=== PATIENT | female | born 1990 | race Caucasian/White ===

== ENCOUNTER 2019-04-02 16:03 | Inpatient (IN) | payer OTHER, SELFPAY ==
--- NOTE | ~2019-04-02 | CT_ITS ---
EXAMINATION: CT abdomen pelvis w con DATE: 04/02/2019 17:54 INDICATION: Right abdominal pain. TECHNIQUE: Computed tomography (CT) of the abdomen and pelvis was performed with 100 mL Omnipaque 350 intravenous contrast. Automated exposure control and iterative reconstruction technique were employe d. The dose-length product was 548.93 mGy-cm. COMPARISON: None. FINDINGS: The visualized portions of the lung bases are clear without pneumonia or pleural effusion. The heart size is normal. No pericardial effusion. The liver, gallbladder, spleen, pancreas, adrenal glands, and kidneys are normal. The appendix is fluid-filled and dilated to 11 mm with surrounding fa t stranding. There is wall thickening of the cecum and adjacent terminal ileum with surrounding fat s tranding. There is a small volume of pelvic ascites. There is an intrauterine device free in the kwame toneum outside of the uterus. There are no pathologically enlarged lymph nodes. There are chronic jatin ateral L5 pars defects without spondylolisthesis. IMPRESSION: 1. Acute appendicitis. 2. Inflammation of the cecum and terminal ileum, likely secondary to the appendicitis. 3. Intrauterine device that is outside of the uterus and free in the peritoneum. 4. Small volume of pelvic ascites. Reviewed, dictated and finalized at location A. [facility] IMPRESSION: 1. Acute appendicitis. 2. Inflammation of the cecum and terminal ileum, likely secondary to the append icitis. 3. Intrauterine device that is outside of the uterus and free in the peritoneum . 4. Small volume of pelvic ascites.
[2019-04-02 16:12] VITALS: BP 125/81; PULSE 86; RESP 18; TEMP 37.3; O2SAT 98
--- NOTE | 2019-04-02 16:36 | ED.BACK ---
HPI - Back Pain/Injury General Chief Complaint: Back Pain/Injury Stated Complaint: Right Flank Pain Time Seen by Provider: 04/02/19 16:08 Source: patient Mode of arrival: ambulatory Limitations: no limitations History of Present Illness HPI Narrative: The pt is a 28 y/o female who presents to the ED with c/o rt flank pain that began 3 days ago. The pt states that the pain radiates from her rt ribs to her rt ABD and rt leg. She describes this is as shooting pain that is worsened with movement. Her pain feels similar to when she had a UTI and she denies any recent lifting, falling, or twisting. The pt reports nausea, but denies fever, chills, vomiting, diarrhea, constipation, dysuria, vaginal bleeding, vaginal discharge, urinary frequency, or cough. Her LKMP is March 19 and she has a PMHx of anxiety and depression. MD elicited complaint: other (rt flank pain) Onset (ago): day(s) (3) Associated symptoms: other (nausea) Related Data Home Medications Medication Instructions Recorded Confirmed acyclovir 200 mg PO QID 04/02/19 04/02/19 citalopram 10 mg PO DAILY 04/02/19 04/02/19 naproxen 500 mg PO BID 04/02/19 04/02/19 sumatriptan 20 mg INTRANASAL ONCE 04/02/19 04/02/19 Allergies Allergy/AdvReac Type Severity Reaction Status Date / Time No Known Allergies Allergy Verified 04/02/19 16:17 Review of Systems Review of Systems: All systems reviewed & are unremarkable except as noted in HPI and below Constitutional: Constitutional: Denies chills and Denies fever(s) Respiratory: Respiratory: Denies cough Gastrointestinal: Gastrointestinal: Denies constipation, Denies diarrhea, Reports nausea and Denies vomiting Genitourinary: Genitourinary: Denies abnormal vaginal bleeding, Denies frequent urination, Denies dysuria, Reports flank pain (rt) and Denies vaginal discharge PMFSH Past Medical History Medical History (Updated 04/02/19 @ 18:48 by Jossie Gilmore MD) Anxiety Depression Surgical History Surgical History (Updated 04/02/19 @ 16:48 by Rachel Danielle) No pertinent past surgical history Social History Social History (Updated 04/02/19 @ 16:48 by Rachel Tamayo Smoking status: Never smoker Gender identity (if verbalized by the patient): Female Exam Narrative: Exam Narrative: General appearance: Well-developed, well-nourished Skin: Normal color Head: Normocephalic, nontraumatic Eyes: Clear conjunctiva ENT: Oropharynx normal, ears normal, nose normal Neck: Supple, nontender Chest and respiratory: Airway patent, no respiratory distress, no accessory muscle use Heart: Regular rate/rhythm Abdomen: Soft, diffuse tenderness mainly right lower quadrant, positive guarding, no organomegaly, quiet bowel sounds Vascular: Normal peripheral pulses, normal capillary refill. Musculoskeletal: Normal range of motion, nontender back, diffuse tenderness of the flank area bilaterally mainly on the right side Neurologic: Alert and oriented ?3, BOX NAILER is normal as tested, no gross motor deficit Course Course Emergency Course: Improving Consultations Consultation #1: Keith Chung accepted admission Date: 04/02/19 Time: 18:50 Consultation #2: Dr. Chavira Date: 04/02/19 Time: 18:55 Vital Signs Vital signs: Vital Signs Temperature 37.3 C 04/02/19 16:12 Pulse Rate 86 04/02/19 16:12 Respiratory Rate 18 04/02/19 16:12 Blood Pressure 125/81 04/02/19 16:12 Pulse Oximetry 98 04/02/19 16:12 Temperature 37.3 C 04/02/19 16:12 Pulse Rate 111 H 04/02/19 18:26 Respiratory Rate 22 H 04/02/19 18:26 Blood Pressure 109/69 04/02/19 18:26 Pulse Oximetry 100 04/02/19 18:26 MDM - Back Pain/Injury M
[2019-04-02] MEDS: HYDROMORPHONE HCL 1 MG/ML INJ 0.5 MG IV PUSH ×2 (16:55→22:14)
[2019-04-02] MEDS: SODIUM CHLORIDE 0.9% IV 1,000 ML 999 ML IV CONT (16:56)
[2019-04-02 17:17] LABS: Basophils Percent Auto 0.3 % (0.2-1.2); Eosinophils Absolute Auto 0.1 K/mm3 (0-0.3); Eosinophils Percent Auto 1.1 % (0-4.4); Hematocrit 35.7 % (37.0-47.0); Hemoglobin 11.4 g/dL (12.0-15.0); Immature Granulocyte Absolute 0.07 K/mm3 (0.00-0.031); Immature Granulocyte Percent A 0.6 % (0-0.5); Lymphocytes Absolute Auto 1.43 K/mm3 (0.9-3.2); Lymphocytes Percent Auto 11.7 % (18.3-44.2); Mean Corpuscular HGB Conc 31.9 g/dl (32-36); Mean Corpuscular Hemoglobin 27.5 pg (26-34); Mean Platelet Volume 9.8 fl (7.4-10.4); Monocytes Absolute Auto 1.1 K/mm3 (0.1-0.6); Monocytes Percent Auto 8.6 % (2.6-8.5); Neutrophils Absolute Auto 9.5 K/mm3 (1.3-6.7); Neutrophils Percent Auto 77.7 % (45.5-73.1); Platelet Count Result 177 k/mm3 (150-375); Red Blood Count 4.15 M/mm3 (4.2-5.4); Red Cell Distribution Width 11.9 % (11.5-14.5); White Blood Count 12.3 K/mm3 (4.5-10.0)
[2019-04-02 17:28] LABS: Alanine Aminotransferase 10 U/L (4-35); Albumin Level 4.1 g/dL (3.5-5.1); Alkaline Phosphatase 92 U/L (38-126); Aspartate Amino Transferase 14 U/L (14-36); Bilirubin,Total 0.5 mg/dL (0.2-1.3); Blood Urea Nitrogen 16 mg/dL (7-17); Calcium 8.6 mg/dL (8.4-10.2); Carbon Dioxide 25 mmol/L (22-30); Chloride 100 mmol/L (98-107); Estimated CRCL calculation 91 ml/min; Estimated Glomerular Filt Rate > 60; Glucose 94 mg/dL (65-105); Lipase 57 U/L (23-300); Potassium 3.6 mmol/L (3.4-5.0); Sodium 137 mmol/L (137-145)
[2019-04-02 18:26] VITALS: BP 109/69; PULSE 111; RESP 22; O2SAT 100
[2019-04-02 19:58] VITALS: BP 118/84; PULSE 106; RESP 21; O2SAT 99
[2019-04-02] MEDS: SODIUM CHLORIDE 0.9% IV 1,000 ML 125 ML IV CONT (20:38)
--- NOTE | 2019-04-02 21:11 | WPDANESEPP ---
Anes - Eval Pre Procedure Procedure: Laparoscopic appendectomy Date/Time: 04/02/19 21:11 Surgeon: Noah Pre Op Diagnosis: Acute appendicitis Patient Data Age: 28 Gender: F Height: 5 ft 4 in Weight: 77.2 kg Last Vital Signs Temp 99.1 F 04/02/19 16:12 Pulse 106 H 04/02/19 19:58 Resp 21 H 04/02/19 19:58 BP 118/84 04/02/19 19:58 Pulse Ox 99 04/02/19 19:58 Allergies Allergy/AdvReac Type Severity Reaction Status Date / Time No Known Allergies Allergy Verified 04/02/19 16:17 Home Medications Medication Instructions Recorded Confirmed Type acyclovir 200 mg PO QID 04/02/19 04/02/19 History citalopram 10 mg PO DAILY 04/02/19 04/02/19 History naproxen 500 mg PO BID 04/02/19 04/02/19 History sumatriptan 20 mg INTRANASAL ONCE 04/02/19 04/02/19 History Laboratory Tests 04/02/19 04/02/19 17:11 17:11 WBC 12.3 K/mm3 H K/mm3 (4.5-10.0) RBC 4.15 M/mm3 L M/mm3 (4.2-5.4) Hgb 11.4 g/dL L g/dL (12.0-15.0) Hct 35.7 % L % (37.0-47.0) MCV 86.0 fl fl (80-100) MCH 27.5 pg pg (26-34) MCHC 31.9 g/dl L g/dl (32-36) RDW 11.9 % % (11.5-14.5) Plt Count 177 k/mm3 k/mm3 (150-375) MPV 9.8 fl fl (7.4-10.4) Immature Gran % (Auto) 0.6 % H % (0-0.5) Neut % (Auto) 77.7 % H % (45.5-73.1) Lymph % (Auto) 11.7 % L % (18.3-44.2) [place] % (Auto) 8.6 % H % (2.6-8.5) Eos % (Auto) 1.1 % % (0-4.4) Baso % (Auto) 0.3 % % (0.2-1.2) Lymph # (Auto) 1.43 K/mm3 K/mm3 (0.9-3.2) [place] # (Auto) 1.1 K/mm3 H K/mm3 (0.1-0.6) Eos # (Auto) 0.1 K/mm3 K/mm3 (0-0.3) Baso # (Auto) 0.0 K/mm3 K/mm3 (0.0-0.1) Abs Immat Gran (auto) 0.07 K/mm3 H K/mm3 (0.00-0.031) Absolute Neuts (auto) 9.5 K/mm3 H K/mm3 (1.3-6.7) Absolute Nucleated RBC 0.0 K/mm3 K/mm3 (0.0-0.012) Nucleated RBC % 0.0 % % (0.0-0.2) Sodium 137 mmol/L mmol/L (137-145) Potassium 3.6 mmol/L mmol/L (3.4-5.0) Chloride 100 mmol/L mmol/L (98-107) Carbon Dioxide 25 mmol/L mmol/L (22-30) BUN 16 mg/dL mg/dL (7-17) Creatinine 0.80 mg/dL mg/dL (0.7-1.0) Estim Creat Clear Calc 91 ml/min ml/min Estimated GFR > 60 (59 - ) Glucose 94 mg/dL mg/dL (65-105) Calcium 8.6 mg/dL mg/dL (8.4-10.2) Total Bilirubin 0.5 mg/dL mg/dL (0.2-1.3) AST 14 U/L U/L (14-36) ALT 10 U/L U/L (4-35) Alkaline Phosphatase 92 U/L U/L (38-126) Total Protein 8.0 g/dL g/dL (6.3-8.2) Albumin 4.1 g/dL g/dL (3.5-5.1) Lipase 57 U/L U/L (23-300) Patient hx anesthesia problems: none Family hx anesthesia problems: none PMFSH Past Medical History Medical History Anemia Anxiety delivery delivered Depression History of smoking Surgical History Surgical History No pertinent past surgical history Social History Social History Smoking packs per day: 0.1 Smoking cigarettes per day: 2.0 Years smoked: 0.2 Smoking pack-years: 0.02 Smoking status: Former smoker Second hand tobacco smoke exposure: Yes Alcohol intake: never Substance use: never Gender identity (if verbalized by the patient): Female Spiritual care concerns: No Agree to blood products: Yes Exam Day of Procedure 04/02/19 21:11
--- NOTE | 2019-04-02 23:54 | PM.IMHP ---
H&P: HPI History of Present Illness Chief complaint: Acute appendicitis Narrative: Candelaria Rowell is a 28 year old female who presented Earlier tonight to the [place] [facility] ED with c/o rt flank pain that began 3 days ago. The pt states that the pain radiates from her rt ribs to her rt ABD and rt leg. She describes this is as shooting pain that is worsened with movement. Her pain feels similar to when she had a UTI and she denies any recent lifting, falling, or twisting. The pt reports nausea, but denies fever, chills, vomiting, diarrhea, constipation, dysuria, vaginal bleeding, vaginal discharge, urinary frequency, or cough. Her LKMP is March 19 and she has a PMHx of anxiety and depression. 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 She thought and they thought that had fallen out. However she has had another in 2012 and then the Mirena device was noted on her CT scan [facility]. I reviewed this with the radiologist it seems to be sitting between a couple loops of bowel just medial to where her appendix is. At the time that I saw her about 9:00 p.m. nemesio she was feeling okay having received some pain medicine in the ED last period she stated that she did lose her appetite but because of her depression medicine she did not think this was unusual because she waxes and wanes with her appetite. Her pain 1st started on Saturday evening of this week. She does not believe she has run a fever. She has been nauseated but she has not vomited. I have discussed the laparoscopic appendectomy with the patient and removal of the IUD please see the plan below. Review of Systems Constitutional: Constitutional: Reports as per HPI and Denies headache(s) Eyes: Eyes: Denies loss of vision and Denies eye pain ENT: Reports hearing normal, Denies change in voice, Denies dizziness and Denies headache(s) Cardiovascular: Cardiovascular: Denies chest pain and Denies dyspnea Respiratory: Respiratory: Denies dyspnea and Denies wheezing Gastrointestinal: Gastrointestinal: Reports abdominal pain, Denies diarrhea, Reports nausea and Denies vomiting Comments: Patient indicates that most of her pain is in the right side of her abdomen. Genitourinary: Genitourinary: Reports hot flashes ( periodically.) Comments: Patient does have a a history of urinary tract infections. Musculoskeletal: Musculoskeletal: Denies back pain and Denies arthralgias Neurologic: Reports Normal hearing present, Denies dizziness, Denies headache(s), Denies loss of vision and Denies memory loss Psychiatric: Psychiatric: Reports depression ( On medication. ( See list)), Denies memory loss and Denies panic attacks Endocrine: Endocrine: Reports no additional endocrine complaints Hematologic/Lymphatic: Hematologic/Lymphatic: Reports no additional hematologic/lymphatic complaints Allergic/Immunologic: Allergic/Immunologic: Denies wheezing PMFSH Past Medical History Medical History Anemia Anxiety delivery delivered Depression History of smoking Surgical History Surgical History No pertinent past surgical history Family History Family History (Updated 04/02/19 @ 23:04 by Sushma Paredes RN) Grandparent Diabetes mellitus Hypertension Grandparent Diabetes mellitus Hypertension Social History Social History Smoking packs per day: 0.1 Smoking cigarettes per day: 2.0 Years smoked: 0.2 Smoking pack-years: 0.02 Smoking status: Former smoker Second hand tobacco smoke exposure: Yes Alcohol intake: never Substance use: never Gender identity (if verbalized by the patient): Female Spiritual care concerns: No Agree to blood products: Yes Meds Home Medications and Allergies Home Medications Medication Instructions Recorded Confirmed
[2019-04-03] VITALS (14 sets, daily range): BP systolic 98–131; BP diastolic 52–72; PULSE 72–92; RESP 12–20; TEMP 36.7–37.7; O2SAT 95–100
[2019-04-03] MEDS: HYDROMORPHONE HCL 1 MG/ML INJ 0.5 MG IV PUSH ×3 (01:40→12:28)
[2019-04-03] MEDS: LACTATED RINGERS 1,000 ML 100 ML IV CONT ×2 (05:23→20:03)
[2019-04-03 06:16] LABS: Basophils Percent Auto 0.4 % (0.2-1.2); Eosinophils Absolute Auto 0.2 K/mm3 (0-0.3); Eosinophils Percent Auto 2.1 % (0-4.4); Hematocrit 33.8 % (37.0-47.0); Hemoglobin 10.9 g/dL (12.0-15.0); Immature Granulocyte Absolute 0.03 K/mm3 (0.00-0.031); Immature Granulocyte Percent A 0.4 % (0-0.5); Lymphocytes Absolute Auto 1.14 K/mm3 (0.9-3.2); Mean Corpuscular HGB Conc 32.2 g/dl (32-36); Mean Corpuscular Hemoglobin 27.7 pg (26-34); Mean Corpuscular Volume 85.8 fl (80-100); Mean Platelet Volume 9.9 fl (7.4-10.4); Monocytes Absolute Auto 0.7 K/mm3 (0.1-0.6); Monocytes Percent Auto 9.1 % (2.6-8.5); Neutrophils Absolute Auto 5.6 K/mm3 (1.3-6.7); Platelet Count Result 160 k/mm3 (150-375); Red Blood Count 3.94 M/mm3 (4.2-5.4); Red Cell Distribution Width 11.9 % (11.5-14.5); White Blood Count 7.6 K/mm3 (4.5-10.0)
[2019-04-03 06:38] LABS: Blood Urea Nitrogen 10 mg/dL (7-17); Calcium 8.4 mg/dL (8.4-10.2); Carbon Dioxide 24 mmol/L (22-30); Chloride 104 mmol/L (98-107); Estimated CRCL calculation 103 ml/min; Estimated Glomerular Filt Rate > 60; Glucose 97 mg/dL (65-105); Magnesium 2.1 mg/dL (1.6-2.3); Potassium 3.5 mmol/L (3.4-5.0); Sodium 137 mmol/L (137-145)
[2019-04-03 07:27] LABS: Appearance Urine Clear (Clear); Bilirubin Urine Negative (Negative); Blood Urine Negative (Negative); Color Urine Yellow (Yellow); Glucose Urine UA Negative (Negative); Ketones Urine Negative (Negative); Leukocyte Esterase Ur Negative LEU/UL (NEGATIVE); Nitrate Urine Negative (Negative); Protein Urine Negative (Negative); Urobilinogen Urine Negative mg/dL (<2.0)
[2019-04-03 07:35] LABS: Add Urine Microscopic? YES; RBC Urine None seen /hpf (0-2); Specific Grav Ur 1.033 (1.001-1.035)
[2019-04-03 07:36] LABS: Squamous Epithelial Cell Urine Few /hpf (Few); WBC Urine 0-3 /hpf (0-3)
--- NOTE | 2019-04-03 08:22 | P.HPUP_ITS ---
History and Physical Update Update Date/Time: 04/03/19 08:22 History and Physical has been reviewed, including an updated exam of the patient. There are changes in the patient's condition. With the institution of IIV antibiotics patient's white count has come down to high normal. Urinalysis has shown that she does not have an apparent UTI. I again discussed surgery and possible complications with the patient including the fact that if the IUD is eroding into a structure something may need to be repaired in order to remove it. She understands and wishes us to proceed. For now I will plan to try to with the IUD in the bag with the appendix and remove it at the time of the surge ry. If there is significant compromise of some of the female tract organs will contact Dr. Chavira who was consulted from the ED. Risks, benefits, and alternatives have been discussed and questions answered. Patient agrees to proceed with procedure.
[2019-04-03] MEDS: LACTATED RINGERS 1,000 ML 30 ML IV CONT ×2 (14:55→18:50)
--- NOTE | 2019-04-03 15:22 | P.PNAN_ITS ---
Anes - Eval Final PreProcedure Day of Procedure 04/03/19 15:22 Patient weight: overweight Heart: regular rate and rhythm Lungs: clear to auscultation Airway: Mallampati scale class II Neurological: alert and oriented Last oral intake: >/= 8 hours ASA classification: II Emergent: no Anesthetic plan: proceed Anesthesia type and monitoring: general and standard monitoring Informed Consent: The patient's anesthetic plan and its attendant risks and be nefits were discussed with the patient/family/POA. Questions were solicited and answers provided to the satisfaction of the patient/family/POA.
--- NOTE | 2019-04-03 15:39 | PC.NURSE ---
Addendum entered by Aria Mello RN 04/03/19 15:41: @ 1400 Original Note: To OR per bed @ 1600, IV #18 LT AC.
[2019-04-03] MEDS: BUPIVACAINE/EPINEPHRINE 0.5% 30 ML VIAL INFILTRATE (16:14)
--- NOTE | 2019-04-03 18:06 | PM.PROC ---
Procedure Note - Detailed Date of procedure: 04/03/19 Pre-op diagnosis: Acute appendicitis 1. Acute appendicitis without signs of perforation or peritonitis 2. IUD, Mirena, free in the abdomen. Post-op diagnosis: same Procedure performed: Laparoscopic Appendectomy Laparoscopic removal of IUD from peritoneal cavity Description of procedure: The patient was seen again in the Holding Room. The risks, benefits, complications, treatment options, and expected outcomes were discussed with the patient and/or family. The possibilities of reaction to medication, pulmonary aspiration, perforation of viscus, bleeding, recurrent infection, finding a normal appendix, the need for additional procedures, failure to diagnose a condition, and creating a complication requiring transfusion or operation were discussed. There was concurrence with the proposed plan and informed consent was obtained. The site of surgery was properly noted/marked. The patient was taken to Operating Room, and a time out was preformed which identified this as the proper patient, and the procedure verified as laparoscopic appendectomy, possible open. The patient was placed in the supine position and general anesthesia was induced, along with placement of orogastric tube, SCD hose, and a Mcmanus catheter. The abdomen was prepped and draped in a sterile fashion. A 5 mm umbilical incision was made and the peritoneal cavity was accessed using the Veress needle technique. Once the abdomen was insufflated to 14 mmHg pressure a 5 mm XL trocar over the 0? 5 mm scope was carefully twisted into the abdomen via the umbilicus. The pneumoperitoneum was then established to steady pressure of 14 mm Hg. A 12 mm laparoscopic port was placed through a transverse suprapubic incision. For this patient I went through the previous scar. An additional 5 mm cannula was then placed in under direct vision. Because of the adhesions were in the midline I decided to place this 5 mm trocar slightly above a little bit to the left of the umbilicus. We then moved our 5 mm scope and camera to that port to proceed with the further dissection and surgery. A careful evaluation of the entire abdomen was carried out. The patient was placed in Trendelenburg and left lateral decubitus position. The small intestines were retracted in the cephalad and left lateral direction away from the pelvis and right lower quadrant. As we did so we saw small string like structure behind some adhesions between 2 loops of small bowel just medial to the cecum. Since I felt this was most likely the IUD we began dissection of that. Following this a grasper was used to elevate some of the string the connected t.i.d. and then we carefully meticulously dissected out 1st the string then the white shaped plastic tips of the IUD. It appeared that this had nestled against the mesentery between a see loop of small bowel but had not eroded into the small bowel with careful dissection using sharp scissors Bovie cautery on L-shaped cautery stick and a Kittner we carefully dissected this out and then grasped and brought out through the suprapubic 12 mm port without difficulty. It was placed in a blue towel placed on the back table until being passed off the table at the end of the procedure to be sent to pathology for gross exam. Careful inspection of the entire small bowel in the area where this was dissected out did not show any signs of leakage of bowel contents and it did not appear that I injured any serosal that I could tell. Most of this was stuck to some mesentery. No significant bleeding occurred during this dissection. As we took down the adhesions noted above we could see the tip of the appendix sitting about the pelvic brim fairly will inflamed and plastered against the right abdominal sidewall with the tip against the right pelvic sidewall. The patient was found to have an enlarged and inflamed appendix that was extending [into the right side of the p
[2019-04-03] MEDS: ONDANSETRON INJ 4 MG/2 ML VIAL IV PUSH ×2 (18:25→21:16)
[2019-04-03] MEDS: SENNA/DOCUSATE SODIUM TABLET 2 TAB PO (21:09)
[2019-04-03] MEDS: ACYCLOVIR 200 MG CAPSULE PO (21:09)
[2019-04-03] MEDS: MORPHINE SULFATE 4 MG/ML INJ IV PUSH (21:10)
[2019-04-04] VITALS: BP 122/64; PULSE 82; RESP 20; TEMP 36.9; O2SAT 96
[2019-04-04 04:00] VITALS: BP 117/65; PULSE 80; RESP 20; TEMP 36.8; O2SAT 98
[2019-04-04 06:41] LABS: Hematocrit 32.1 % (37.0-47.0); Hemoglobin 10.5 g/dL (12.0-15.0); Mean Corpuscular HGB Conc 32.7 g/dl (32-36); Mean Corpuscular Hemoglobin 27.3 pg (26-34); Mean Corpuscular Volume 83.4 fl (80-100); Mean Platelet Volume 10.1 fl (7.4-10.4); Platelet Count Result 185 k/mm3 (150-375); Red Blood Count 3.85 M/mm3 (4.2-5.4); Red Cell Distribution Width 11.7 % (11.5-14.5); White Blood Count 10.4 K/mm3 (4.5-10.0)
[2019-04-04 06:53] LABS: Blood Urea Nitrogen 7 mg/dL (7-17); Carbon Dioxide 24 mmol/L (22-30); Chloride 103 mmol/L (98-107); Estimated CRCL calculation 118 ml/min; Estimated Glomerular Filt Rate > 60; Glucose 154 mg/dL (65-105); Sodium 138 mmol/L (137-145)
--- NOTE | 2019-04-04 08:45 | WPDANESPN ---
Anes - Prog Note Post-Op Date/Time: 04/04/19 08:45 Cardiovascular status: normal Respiratory status: normal Airway patency: baseline Mental status: baseline Post-Op hydration status: normal Vital Signs: Last Vital Signs Temp 36.8 C 04/04/19 04:00 Pulse 80 04/04/19 04:00 Resp 20 04/04/19 04:00 BP 117/65 04/04/19 04:00 Pulse Ox 98 04/04/19 04:00 I/O: Intake & Output 04/03/19 04/04/19 04/04/19 23:59 07:59 15:59 Intake Total 900 640 Output Total 1100 Balance 900 -460 Laboratory Tests 04/04/19 06:15 04/04/19 06:15 04/04/19 04/04/19 06:15 06:15 WBC 10.4 H RBC 3.85 L Hgb 10.5 L Hct 32.1 L MCV 83.4 MCH 27.3 MCHC 32.7 RDW 11.7 Plt Count 185 MPV 10.1 Sodium 138 Potassium 4.0 Chloride 103 Carbon Dioxide 24 BUN 7 Creatinine 0.60 L Estim Creat Clear Calc 118 Estimated GFR > 60 Glucose 154 H Calcium 9.0 Post-procedural complaints: none Patient Feedback: Patient satisfied with anesthetic care.
[2019-04-04] MEDS: ENOXAPARIN 40 MG/0.4 ML SYRINGE SUB-Q (09:29)
[2019-04-04] MEDS: CITALOPRAM HYDROBROMIDE 10 MG TABLET PO (09:29)
[2019-04-04] MEDS: ACYCLOVIR 200 MG CAPSULE PO (09:29)
[2019-04-04 12:23] VITALS: BP 107/62; PULSE 72; RESP 17; TEMP 36.7; O2SAT 98
--- NOTE | 2019-04-04 13:02 | PM.DS ---
DS: Diagnosis Admitting Diagnosis Admitting Diagnosis: Acute appendicitis with localized peritonitis, without perforation or gangrene IUD migration DS: Summary Time Spent with Patient Time attestation: the patient is a 28-year-old woman who came to the emergency room on April 02, 2019. She was having right flank pain that radiated to her right ribs and right leg. This was described as a shooting pain. This pain at started on March 30. She denied having had any any fever. She was seen in the emergency room and exam, evaluation was suspicious for appendicitis. CT scan did show appendicitis however it also showed a Merena IUD having migrated from the uterus into the abdomen. The patient was taken to surgery by Dr. Zamora on April 03 and underwent laparoscopic appendectomy with removal of the displaced IUD. The surgery went well. She was observed overnight. She was comfortable on oral analgesics, ambulatory, and eating without difficulties. She is discharged today in good condition. Exam Const: General: comfortable and no acute distress; No confused Orientation/consciousness: oriented x3 and No confused Resp: Effort & Inspection: normal respiratory effort Auscultation: clear to auscultation bilaterally Cardio: Rate: regular rate Rhythm: regular rhythm GI: Inspection: non-distended and incision ( Healing well) GI Palp: Yes soft, Yes tender ( mild appropriate postoperative tenderness.), No guarding and No rebound tenderness Auscultation: normal bowel sounds Neuro: General: oriented x3, no focal motor deficits and No confused Extrem: General: no calf tenderness and no edema Psych: Affect: normal affect Insight: insight good Judgement: judgment good DS: Data Data Completed and Pending Pending studies at discharge: Pending at discharge 04/03/19 17:17 Surgical [PTH] Routine Labs on day of discharge: Labs from last 24 hours 04/04/19 04/04/19 06:15 06:15 WBC 10.4 H RBC 3.85 L Hgb 10.5 L Hct 32.1 L MCV 83.4 MCH 27.3 MCHC 32.7 RDW 11.7 Plt Count 185 MPV 10.1 Sodium 138 Potassium 4.0 Chloride 103 Carbon Dioxide 24 BUN 7 Creatinine 0.60 L Estim Creat Clear Calc 118 Estimated GFR > 60 Glucose 154 H Calcium 9.0 Discharge Plan Discharge Attending physician on discharge: Keith Zamora Consulting providers: Low Chavira Discharging Clinician: Waldemar Cagle Patient Disposition: Home, Self-Care Activity: may shower, no straining and as tolerated Diet: as tolerated and regular Wound Care Instructions: incision open to air Discharge Instructions: 1. May shower the day after surgery over incisions. 2. Call office for: -Wound increasingly painful or bleeding -Vomiting -Fever of greater than 101 degrees 3. Expect some blood on dressing and old blood on skin. 4. If no bowel movement for three days, take 1 oz. (30 ml) Milk of Magnesia, if no results, take Fleets enema. 5. No heavy lifting > 15-20 pounds for 2 weeks. 6. No driving for 3 days or while taking narcotic pain medications. 7. Up walking 10-30 minutes three times per day. 8. Resume previous home medications. 9. Follow-up 10-14 days in office for wound check or as previously scheduled. 10. Oral pain medications prescription to be sent home with patient. 11. NUTRITION: Start out by drinking fluids and increase your diet as tolerated. If you experience nausea, try dry toast, crackers, and 7-UP. If nausea or vomiting persists, contact your surgeon?s office. Patient Instructions: Appendicitis (GEN), Antibiotic Form Stand Alone Forms: General Discharge Information, Work/School Release IP Follow-up/Referrals: Keith Zamora MD [Physician] - 2 Weeks Discharge Medications: New hydrocodone-acetaminophen 5-325 mg tablet 1 - 2 tablet PO Q6H PRN
--- NOTE | 2019-04-08 12:47 | PM.DS ---
DS: Diagnosis Admitting Diagnosis Admitting Diagnosis: Acute appendicitis with localized peritonitis, without perforation or gangrene Discharge diagnosis is acute appendicitis consistent with the admitting diagnosis DS: Summary Time Spent with Patient Time attestation: Total time spent providing and/or coordinating discharge services: DS: Data Data Completed and Pending Completed studies during hospitalization: Pending at discharge 04/03/19 17:17 Surgical [PTH] Routine Discharge Plan Discharge Attending physician on discharge: Keith Zamora Consulting providers: Aleksandar Almonte V. Discharging Clinician: Waldemar Cagle Patient Disposition: Home, Self-Care Activity: may shower, no straining and as tolerated Diet: as tolerated and regular Wound Care Instructions: incision open to air Discharge Instructions: 1. May shower the day after surgery over incisions. 2. Call office for: -Wound increasingly painful or bleeding -Vomiting -Fever of greater than 101 degrees 3. Expect some blood on dressing and old blood on skin. 4. If no bowel movement for three days, take 1 oz. (30 ml) Milk of Magnesia, if no results, take Fleets enema. 5. No heavy lifting > 15-20 pounds for 2 weeks. 6. No driving for 3 days or while taking narcotic pain medications. 7. Up walking 10-30 minutes three times per day. 8. Resume previous home medications. 9. Follow-up 10-14 days in office for wound check or as previously scheduled. 10. Oral pain medications prescription to be sent home with patient. 11. NUTRITION: Start out by drinking fluids and increase your diet as tolerated. If you experience nausea, try dry toast, crackers, and 7-UP. If nausea or vomiting persists, contact your surgeon?s office. Patient Instructions: Antibiotic Form, Appendicitis (GEN) Stand Alone Forms: General Discharge Information, Work/School Release IP Follow-up/Referrals: Keith Zamora MD [Physician] - 2 Weeks Discharge Medications: New hydrocodone-acetaminophen 5-325 mg tablet 1 - 2 tablet PO Q6H PRN (Reason: pain) Qty: 7 RF: 0 ketorolac 10 mg tablet 10 mg PO Q6H 4 Days Qty: 16 RF: 0 Continued citalopram 10 mg Tablet 10 mg PO DAILY RF: 0 acyclovir 200 mg Capsule 200 mg PO DAILY RF: 0 naproxen 500 mg Tablet 500 mg PO BID RF: 0 sumatriptan 10 mg/actuation [place],Non-Aerosol 20 mg INTRANASAL ONCE RF: 0 Date of admission: 04/02/19 19:00 Primary Care Provider: UNKNOWN,DOCTOR Admitting Provider: Keith Zamora Discharge Date/Time: 04/04/19 14:02 Attending physician on admission: Waldemar Cagle Condition: Stable
== END 2019-04-04 14:02 | disposition home or self-care (01) | DRG 234 ==
LOC: ANHED 18:48 → ANH3MEDSUR 21:13
PROVIDERS: Admitting Provider Surgery; Emergency Provider Emergency Medicine; Visit Provider Surgery
PROC: 0DTJ4ZZ Resection of Appendix, Percutaneous Endoscopic Approach (ICD-10-PCS; CPT 44970; principal; 2019-04-03 15:00)
DX: K35.30 Acute appendicitis with localized peritonitis, without perforation or gangrene (principal); F41.8 Other specified anxiety disorders; Z87.891 Personal history of nicotine dependence; T83.89XD Other specified complication of genitourinary prosthetic devices, implants and grafts, subsequent encounter
CPT/HCPCS: 36415; 74177; 80048; 80053; 81001; 81025; 83690; 83735; 85025; 85027; 88300; 88304; 96374; 99285; A9270; J0330; J1100; J1170; J1650; J2250; J2270; J2405; J2543; J2704; J2710; J3010; J7030; J7120; Q9967

== ENCOUNTER 2019-05-28 17:46 | Emergency (ER) | payer OTHER, SELFPAY ==
[2019-05-28 18:35] VITALS: BP 126/56; PULSE 78; RESP 18; TEMP 37.3; O2SAT 100
[2019-05-28 18:50] LABS: Basophils Percent Auto 0.5 % (0.2-1.2); Eosinophils Absolute Auto 0.1 K/mm3 (0-0.3); Eosinophils Percent Auto 1.8 % (0-4.4); Hematocrit 33.9 % (37.0-47.0); Hemoglobin 11.2 g/dL (12.0-15.0); Immature Granulocyte Absolute 0.03 K/mm3 (0.00-0.031); Immature Granulocyte Percent A 0.4 % (0-0.5); Lymphocytes Absolute Auto 2.08 K/mm3 (0.9-3.2); Lymphocytes Percent Auto 26.9 % (18.3-44.2); Mean Corpuscular Hemoglobin 27.3 pg (26-34); Mean Corpuscular Volume 82.5 fl (80-100); Mean Platelet Volume 9.9 fl (7.4-10.4); Monocytes Absolute Auto 0.7 K/mm3 (0.1-0.6); Monocytes Percent Auto 9.6 % (2.6-8.5); Neutrophils Absolute Auto 4.7 K/mm3 (1.3-6.7); Neutrophils Percent Auto 60.8 % (45.5-73.1); Platelet Count Result 206 k/mm3 (150-375); Red Blood Count 4.11 M/mm3 (4.2-5.4); Red Cell Distribution Width 12.4 % (11.5-14.5); White Blood Count 7.7 K/mm3 (4.5-10.0)
[2019-05-28 18:55] LABS: Add Urine Microscopic? YES; Appearance Urine Clear (Clear); Bacteria Urine Trace /hpf; Bilirubin Urine Negative (Negative); Blood Urine Negative (Negative); Color Urine Colorless (Yellow); Glucose Urine UA Negative (Negative); Ketones Urine Negative (Negative); Leukocyte Esterase Ur 1+ LEU/UL (Negative); Mucus Urine Rare /lpf; Nitrate Urine Negative (Negative); Protein Urine Negative (Negative); RBC Urine 0-2 /hpf (0-2); Specific Grav Ur 1.009 (1.001-1.035); Squamous Epithelial Cell Urine Many /hpf (Few); Urobilinogen Urine Negative mg/dL (<2.0); WBC Urine 0-3 /hpf
== END 2019-05-28 22:43 | disposition left against medical advice (07) ==
LOC: ANHED 22:54
PROVIDERS: Emergency Medicine; PCP Internal Medicine Gastroenterology
DX: R10.9 Unspecified abdominal pain (principal)
CPT/HCPCS: 36415; 81001; 84702; 85025; 99199

== ENCOUNTER 2019-11-20 11:37 | Emergency (ER) | payer OTHER, SELFPAY ==
[2019-11-20 11:42] VITALS: BP 120/61; PULSE 93; RESP 18; TEMP 36.9; O2SAT 100
--- NOTE | 2019-11-20 12:11 | ECG_ITS ---
Measurements Intervals [place] Rate: 79 P: 20 RI: 136 QRS: 2 QRSD: 94 T: 4 QT: 374 QTc: 431 Interpretive Statements SINUS RHYTHM VOLTAGE CRITERIA FOR LVH BORDERLINE ECG Electronically Signed On 11-20-2019 13:05:17 CDT by Cameron Low D.O.
--- NOTE | 2019-11-20 12:12 | ED.DIZZY ---
HPI - Dizziness General Chief Complaint: Dizziness Stated Complaint: 31 wks , dizzy spells, eyes hurt Time Seen by Provider: 11/20/19 12:04 Source: RN notes reviewed History of Present Illness HPI Narrative: Patient presents emergency department from home for dizziness. Patient states that started 9:30 AM she is been having episodes of dizziness. States that they are worse when she gets up but still has dizziness with sitting down. She states that with that she is been having intermittent episodes of some blurred vision as well. She denies any numbness or tingling of the extremities or weakness of the extremities denies any fevers or chills chest pain shortness of breath abdominal pain or any other symptoms. Patient is approximately [address] Gregory Related Data Home Medications Medication Instructions Recorded Confirmed PNV,calcium 53-gdln-rkcta acid 72 tablet 11/20/19 [ Vitamin Plus Low Iron] aspirin 81 11/20/19 folic acid 1 11/20/19 progesterone micronized 200 mg 11/20/19 Allergies Allergy/AdvReac Type Severity Reaction Status Date / Time No Known Drug Allergies Allergy Other Verified 11/20/19 11:45 vanilla Allergy Severe Nausea and Uncoded 11/20/19 12:10 Vomiting Review of Systems Review of Systems: Narrative: Gen.: Denies fevers or chills Eyes: Notes intermittent blurred vision ENT: Denies congestion Respiratory: Denies shortness of breath or cough CV: Denies chest pain or palpitations GI: Denies abdominal pain nausea, emesis or diarrhea reports 31 weeks Musculoskeletal: Denies back pain or muscle pain Neuro: See HPI Skin: Denies rash Except as documented, all other systems reviewed and negative PMFSH Past Medical History Medical History Anemia Anxiety delivery delivered Depression History of smoking IUD migration (~03/2019) Surgical History Surgical History (System 08/05/19 @ 13:00 by Cassandra Rob) History of laparoscopic appendectomy No pertinent past surgical history Social History Social History Smoking packs per day: 0.1 Smoking cigarettes per day: 2.0 Years smoked: 0.2 Smoking pack-years: 0.02 Smoking status: Former smoker Second hand tobacco smoke exposure: Yes Alcohol intake: never Substance use: never Gender identity (if verbalized by the patient): Female Spiritual care concerns: No Agree to blood products: Yes Exam Narrative: Exam Narrative: APPEARANCE: No acute distress, nontoxic, resting in bed HEENT: Normocephalic, atraumatic, OMM, TMs clear bilaterally EYES: PERRL, EOMI NECK: Supple, nontender, full range of motion without pain, no meningismus RESPIRATORY: No respiratory distress, clear to auscultation bilaterally with no rhonchi wheezing or rales CARDIOVASCULAR: RRR s murmur ABDOMINAL: Soft, nontender, nondistended MUSCULOSKELETAL: Moves all extremities. No clubbing, cyanosis or edema. NEURO: A and O ?3, following commands, speech normal, cranial nerves II through XII grossly intact,muscle strength 5 out of 5 bilateral upper and lower extremities SKIN:: Warm, dry. Normal Color PSYCHIATRIC: Normal affect/mood Course Course Emergency Course: Patient given Antivert in ER with complete resolution of her symptoms able to get up and ambulate with no difficulty Discussed with patient results of workup and diagnosis. Discussed need for follow-up with primary care, proper use of medication, and reasons to return to the emergency department. Patient understands and agrees to current treatment plan Vital Signs Vital signs: Vital Signs Temperature 98.5 F 11/20/19 11:42 Pulse Rate 93 11/20/19 11:42 Respiratory Rate 18 11/20/19 11:42 Blood Pressure 120/61 11/20/19 11:42 Pulse Oximetry 100 11/20/19 11:42 Temperature 98.5 F 11/20/19 11:42 Puls
[2019-11-20] MEDS: MECLIZINE HCL 25 MG TABLET PO (12:30)
[2019-11-20] MEDS: SODIUM CHLORIDE 0.9% IV 1,000 ML 999 ML IV CONT (12:30)
[2019-11-20 12:35] LABS: Basophils Percent Auto 0.4 % (0.2-1.2); Eosinophils Absolute Auto 0.1 K/mm3 (0-0.3); Eosinophils Percent Auto 0.7 % (0-4.4); Hemoglobin 10.8 g/dL (12.0-15.0); Immature Granulocyte Absolute 0.17 K/mm3 (0.00-0.031); Immature Granulocyte Percent A 1.7 % (0-0.5); Lymphocytes Absolute Auto 1.03 K/mm3 (0.9-3.2); Lymphocytes Percent Auto 10.6 % (18.3-44.2); Mean Corpuscular HGB Conc 33.8 g/dl (32-36); Mean Corpuscular Hemoglobin 27.6 pg (26-34); Mean Corpuscular Volume 81.8 fl (80-100); Mean Platelet Volume 10.5 fl (7.4-10.4); Monocytes Absolute Auto 0.7 K/mm3 (0.1-0.6); Monocytes Percent Auto 6.9 % (2.6-8.5); Neutrophils Absolute Auto 7.7 K/mm3 (1.3-6.7); Neutrophils Percent Auto 79.7 % (45.5-73.1); Platelet Count Result 197 k/mm3 (150-375); Red Blood Count 3.91 M/mm3 (4.2-5.4); Red Cell Distribution Width 13.6 % (11.5-14.5); White Blood Count 9.7 K/mm3 (4.5-10.0)
[2019-11-20 12:40] LABS: Add Urine Microscopic? YES; Appearance Urine Cloudy (Clear); Bacteria Urine Trace /hpf; Bilirubin Urine Negative (Negative); Blood Urine Negative (Negative); Color Urine Yellow (Yellow); Glucose Urine UA Negative (Negative); Ketones Urine Negative (Negative); Leukocyte Esterase Ur Negative LEU/UL (Negative); Nitrate Urine Negative (Negative); Protein Urine Negative (Negative); Specific Grav Ur 1.015 (1.001-1.035); Squamous Epithelial Cell Urine Many /hpf (Few)
[2019-11-20 12:51] LABS: Alanine Aminotransferase 22 U/L (4-35); Albumin Level 3.9 g/dL (3.5-5.1); Alkaline Phosphatase 142 U/L (38-126); Aspartate Amino Transferase 18 U/L (14-36); Bilirubin,Total 0.3 mg/dL (0.2-1.3); Blood Urea Nitrogen 8 mg/dL (7-17); Calcium 9.3 mg/dL (8.4-10.2); Carbon Dioxide 21 mmol/L (22-30); Chloride 106 mmol/L (98-107); Estimated Glomerular Filt Rate > 60; Glucose 107 mg/dL (65-105); Sodium 135 mmol/L (137-145)
[2019-11-20 14:26] VITALS: BP 126/75; PULSE 75; RESP 15; O2SAT 99
[2019-11-20 14:28] VITALS: BP 112/65; PULSE 70
[2019-11-20 14:29] VITALS: BP 116/66; PULSE 77
[2019-11-20 14:31] VITALS: BP 117/84; PULSE 79
== END 2019-11-20 15:16 | disposition home or self-care (01) ==
PROVIDERS: Emergency Provider Emergency Medicine; PCP Internal Medicine Gastroenterology
DX: O26.893 Other specified pregnancy related conditions, third trimester (principal); R42 Dizziness and giddiness; Z87.891 Personal history of nicotine dependence; Z86.2 Personal history of diseases of the blood and blood-forming organs and certain disorders involving the immune mechanism; Z79.82 Long term (current) use of aspirin; R94.31 Abnormal electrocardiogram [ECG] [EKG]; Z3A.31 31 weeks gestation of pregnancy
CPT/HCPCS: 36415; 80053; 81001; 85025; 93005; 96360; 99283; A9270; J7030

== ENCOUNTER 2019-12-24 14:36 | Outpatient (RCR) | payer OTHER, SELFPAY ==
--- NOTE | ~2019-12-24 | US_ITS ---
EXAMINATION: US OB BPP wo non-stress DATE: 12/24/2019 15:40 INDICATION: Decreased movement. Third trimester. TECHNIQUE: Real-time pelvic ultrasound was performed. COMPARISON: None. FINDINGS: There is a single living fetus in breech presentation. The placenta is right fundal. heart rat e is 144 beats per minute (bpm). Biophysical profile performed by the technologist: breathing (30 sec sustained breathing in 30 minutes): 2 out of 2 movement (3 gross body movements in 30 minutes): 2 out of 2 tone (one episode of urgntat-qqwvqnbby-kaoadaa limb movement): 2 out of 2 Amniotic fluid pocket (2 cm): 2 out of 2 Total score: 8 out of 8 IMPRESSION: 1. Single living fetus in breech presentation. 2. Biophysical profile 8 out of 8. Reviewed, dictated and finalized at location B.
[2019-12-24 15:43] VITALS: BP 119/71; PULSE 80
== END 2020-01-05 07:46 | disposition home or self-care (01) ==
LOC: ANHOBOP 14:36
PROVIDERS: PCP Internal Medicine Gastroenterology; Visit Provider Obstetrics & Gynecology
DX: O36.8130 Decreased fetal movements, third trimester, not applicable or unspecified (principal); Z3A.36 36 weeks gestation of pregnancy
CPT/HCPCS: 59025; 76819

== ENCOUNTER 2020-01-04 22:36 | Inpatient (IN) | payer OTHER, SELFPAY ==
[2020-01-05] VITALS (60 sets, daily range): BP systolic 102–136; BP diastolic 57–98; PULSE 52–91; RESP 12–18; TEMP 36.2–37.7; O2SAT 97–100
--- NOTE | 2020-01-05 01:01 | PC.NURSE ---
0030- paged Dr. Gregory via exchange service [phone]- Dr. Gregory returned call- informed of pt admission, pt came in c/o abdominal pain, pt having contractions every 3-6 minutes rating 8/10 on pain scale. cervical exam at 2325-closed/-3 station, cervical recheck 0025-closed/-3 station. order received for LR 1 L bolus may repeat if necessary. call Dr. Gregory after bolus's complete to review plan of care.
[2020-01-05] MEDS: LACTATED RINGERS 1,000 ML 125 ML IV CONT ×3 (01:10→02:27)
--- NOTE | 2020-01-05 02:11 | PC.NURSE ---
0147- Dr. Gregory inquired by phone. update given. order to admit pt for observation over night. order for ambien 5mg received. continue with IV fluids, UA ordered. will reevaluate pt in am.
--- NOTE | 2020-01-05 02:47 | PC.NURSE ---
pt refused ambien 5mg. will continue to monitor pt. will call if questions/concerns. UA sent to lab.
[2020-01-05 02:49] LABS: Add Urine Microscopic? NO; Appearance Urine Clear (Clear); Bilirubin Urine Negative (Negative); Blood Urine Negative (Negative); Color Urine Yellow (Yellow); Glucose Urine UA Negative (Negative); Ketones Urine Negative (Negative); Leukocyte Esterase Ur Negative LEU/UL (NEGATIVE); Nitrate Urine Negative (Negative); Protein Urine Negative (Negative); Specific Grav Ur 1.018 (1.001-1.035); Urobilinogen Urine Negative mg/dL (<2.0)
--- NOTE | 2020-01-05 03:13 | PC.NURSE ---
0305- paged Dr. Gregory via answering service [phone]- Dr. Gregory returned page. informed of 3-4 minute decel from 90-135. heart tones recovered with intervention. Dr. Gregory informed of UA results. Dr. Gregory coming in to evaluate pt.
--- NOTE | 2020-01-05 04:43 | PM.IMHP ---
H&P: HPI History of Present Illness Date/Time: 01/05/20 04:43 Chief complaint: abd pain Narrative: Candelaria Rowell is 29 yo female with pmhx of MTHFR, MDD, EMILIO, and deliveries @ 38w1d EGA presents to [facility] with regular contractions every 3-5 minutes rated 7-8/10over past 6 hours without relief from IV fluids and position She denies ROM or VB She also had 3 minute episode of heart deceleration to 90 but now stable FHT Due to previous c section and Bilateral tubal sterilization scheduled for 01/15/20 we will proceed with surgery at this time due to active contractions I explained the condition procedure and risks involved including but not limited to bleeding infection injury to bladder bowel baby DVT pneumonia wound infection endometritis UTI and risk of anesthesia. She also understands tubal is permanent irreversible and has a failure rate of 3-07/999 with increased risk ectopic and sequelae She agrees to proceed IDPH consents are signed Review of Systems Review of Systems: All systems reviewed & are unremarkable except as noted in HPI and below Constitutional: Constitutional: Reports no additional constitutional complaints Eyes: Eyes: Reports no additional eye complaints ENT: Reports system reviewed and no additional complaints, except as documented Cardiovascular: Cardiovascular: Reports no additional cardiovascular complaints Respiratory: Respiratory: Reports no additional respiratory complaints Gastrointestinal: Gastrointestinal: Reports no additional gastrointestinal complaints Genitourinary: Genitourinary: Reports no additional female genitourinary complaints Musculoskeletal: Musculoskeletal: Reports no additional musculoskeletal complaints Integumentary/Breasts: Skin/Breast: Reports system reviewed and no additional complaints, except as docu Neurologic: Reports system reviewed and no additional complaints, except as documented Psychiatric: Psychiatric: Reports no additional psychiatric complaints Endocrine: Endocrine: Reports no additional endocrine complaints Hematologic/Lymphatic: Hematologic/Lymphatic: Reports no additional hematologic/lymphatic complaints Allergic/Immunologic: Allergic/Immunologic: Reports no additional allergic/immunologic complaints [facility] Past Medical History Medical History (Updated 01/05/20 @ 05:10 by Steven Gregory MD) Anemia Anxiety delivery delivered Depression History of smoking IUD migration (~03/2019) Surgical History Surgical History (Updated 01/05/20 @ 05:08 by Steven Gregory MD) History of laparoscopic appendectomy Previous section 06-16-2010, 38 wks BREECH 1. F, 7lbs 6oz, Primary Dr Gregory [facility] Previous section 05-24-2012, 39 wks 1. F, 5lbs 7oz, Repeat NOTE Dr Price at [place] Family History Family History Grandparent Diabetes mellitus Hypertension Grandparent Diabetes mellitus Hypertension Grandparent Family history of heart disease in male family member before age 55 Diabetes mellitus Carcinoma of colon Father COPD (chronic obstructive pulmonary disease) Social History Social History (Updated 01/05/20 @ 05:05 by Steven Gregory MD) Smoking packs per day: 1 Smoking cigarettes per day: 20.0 Years smoked: 10 Smoking pack-years: 10.00 Smoking status: Former smoker Tobacco type: cigarettes Second hand tobacco smoke exposure: Yes Alcohol intake: never Substance use: never Substance use type: does not use Living arrangements: with family 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
--- NOTE | 2020-01-05 04:53 | WPDANESEPPF ---
Anes - Initial Pre Proc Eval Procedure: Section w/ tubal ligation Date/Time: 01/05/20 04:53 Surgeon: Steven Gregory MD Pre Op Diagnosis: heart rate deceleration and desire for sterility Pre Op Diagnosis: abd pain Patient Data Age: 29 Gender: F Height: Weight: Last Vital Signs Pulse 87 01/05/20 04:31 BP 136/85 01/05/20 04:31 Allergies Allergy/AdvReac Type Severity Reaction Status Date / Time vanilla Allergy Severe Nausea and Uncoded 11/20/19 12:10 Vomiting Home Medications Medication Instructions Recorded Confirmed Type meclizine 12.5 mg PO TID PRN #10 tablet 11/20/19 12/24/19 Rx PNV cmb#95-ferrous fumarate-FA 1 tablet PO DAILY 12/23/19 12/24/19 History [] aspirin 81 mg PO DAILY 12/23/19 12/24/19 History bupropion HCl 150 mg PO DAILY 12/23/19 12/24/19 History cetirizine [Zyrtec] 10 mg PO DAILY 12/23/19 12/24/19 History citalopram 40 mg PO BID 12/23/19 12/24/19 History fluticasone propionate [Flonase 1 spray INTRANASAL DAILY 12/23/19 12/24/19 History Allergy Relief] folic acid 1 mg PO DAILY 12/23/19 12/24/19 History progesterone micronized 200 mg PO HS 12/23/19 12/24/19 History Laboratory Tests 01/05/20 01/05/20 01/05/20 02:34 04:46 04:46 WBC Pending RBC Pending Hgb Pending Hct Pending MCV Pending MCH Pending MCHC Pending RDW Pending Plt Count Pending MPV Pending Immature Gran % (Auto) Pending Neut % (Auto) Pending Lymph % (Auto) Pending [place] % (Auto) Pending Eos % (Auto) Pending Baso % (Auto) Pending Lymph # (Auto) Pending [place] # (Auto) Pending Eos # (Auto) Pending Baso # (Auto) Pending Abs Immat Gran (auto) Pending Absolute Neuts (auto) Pending Absolute Nucleated RBC Pending Nucleated RBC % Pending Urine Color Yellow (Yellow) Urine Appearance Clear (Clear) Urine pH 5.0 (5.0-9.0) Ur Specific [place] 1.018 (1.001-1.035) Urine Protein Negative mg/dL mg/dL (Negative) Urine Glucose (UA) Negative mg/dL mg/dL (Negative) Urine Ketones Negative mg/dL mg/dL (Negative) Ur Blood (Man) Negative (Negative) Urine Nitrate Negative (Negative) Urine Bilirubin Negative (Negative) Urine Urobilinogen Negative mg/dL mg/dL (<2.0) Ur Leukocyte Esterase Negative ADONAY/UL ADONAY/UL (NEGATIVE) RPR Pending Patient hx anesthesia problems: none Family hx anesthesia problems: none PMFSH Past Medical History Medical History Anemia Anxiety delivery delivered Depression History of smoking IUD migration (~03/2019) Surgical History Surgical History History of laparoscopic appendectomy No pertinent past surgical history Family History Family History Grandparent Diabetes mellitus Hypertension Grandparent Diabetes mellitus Hypertension Grandparent Family history of heart disease in male family member before age 55 Diabetes mellitus Carcinoma of colon Father COPD (chronic obstructive pulmonary disease) Social History Social History Smoking packs per day: 0.1 Smoking cigarettes per day: 2.0 Years smoked: 0.2 Smoking pack-years: 0.02 Smoking status: Former smoker Second hand tobacco smoke exposure: Yes Alcohol intake: never Substance use: never Gender identity (if verbalized by the patient): Female Spiritual care concerns: No Agree to blood products: Yes Anibal Gomes
[2020-01-05 04:54] LABS: Basophils Absolute Auto 0.1 K/mm3 (0.0-0.1); Basophils Percent Auto 0.5 % (0.2-1.2); Eosinophils Absolute Auto 0.1 K/mm3 (0-0.3); Eosinophils Percent Auto 0.9 % (0-4.4); Hematocrit 31.9 % (37.0-47.0); Hemoglobin 10.1 g/dL (12.0-15.0); Immature Granulocyte Absolute 0.22 K/mm3 (0.00-0.031); Immature Granulocyte Percent A 1.7 % (0-0.5); Lymphocytes Percent Auto 13.5 % (18.3-44.2); Mean Corpuscular HGB Conc 31.7 g/dl (32-36); Mean Corpuscular Volume 82.2 fl (80-100); Mean Platelet Volume 11.8 fl (7.4-10.4); Monocytes Percent Auto 8.2 % (2.6-8.5); Neutrophils Absolute Auto 9.5 K/mm3 (1.3-6.7); Neutrophils Percent Auto 75.2 % (45.5-73.1); Platelet Count Result 218 k/mm3 (150-375); Red Blood Count 3.88 M/mm3 (4.2-5.4); Red Cell Distribution Width 14.5 % (11.5-14.5); White Blood Count 12.6 K/mm3 (4.5-10.0)
--- NOTE | 2020-01-05 05:11 | WPDHPUPDATE1 ---
History and Physical Update Update Date/Time: 01/05/20 05:11 History and Physical has been reviewed, including an updated exam of the patient. There are NO changes in the patient's condition. Risks, benefits, and alternatives have been discussed and questions answered. Patient agrees to proceed with procedure. 29 yo female with pmhx of MTHFR, MDD, EMILIO, and deliveries presents for REPEAT C SECTION AND TUBAL STERILIZATION
--- NOTE | 2020-01-05 05:12 | WPDOBADMIT ---
Obstetrics - Admit Note Admission Note: record reviewed. No pertinent additions to the history and/or any subsequent changes in the physical findings that are not consistent with the expected course of the were found. Additions to the history and/or subsequent changes in the physical findings follow. None. 29 yo female with pmhx of MTHFR, MDD, EMILIO, and deliveries presents for REPEAT C SECTION AND TUBAL STERILIZATION
[2020-01-05] MEDS: OXYTOCIN 10 UNITS/ML VIAL (05:45)
--- NOTE | 2020-01-05 06:32 | PM.PROC ---
Procedure Note - Detailed Date of procedure: 01/05/20 Pre-op diagnosis: abd pain 29 yo female with pmhx of MTHFR, MDD, EMILIO, and deliveries presents for REPEAT C SECTION AND TUBAL STERILIZATION Post-op diagnosis: same ( DELIVERED VIABLE MALE INFANT ;ELKE BREECH PRESENTATION) Procedure performed: REPEAT LOW TRANSVERSE C SECTION WITH BREECH EXTRACTION OF VIABLE MALE AND PLACENTA BILATERAL TUBAL STERILIZATION BILATERAL COMPLETE SALPINGECTOMIES Description of procedure: Patient was given informed consent taken to the operating room where spinal anesthetic was administered a Mcmanus catheter was inserted the patient was in the supine position and then prepped and then draped in the usual sterile fashion. A time-out was performed An elliptical incision was made around the old scar and the old scar was excised using electrocautery down to the fascia. The fascia was entered with electrocautery and undermined inferiorly and superiorly and then the rectus muscles were in the midline and the peritoneum was entered with electrocautery the vesicouterine peritoneal reflection was incised transversely and a transverse incision was made to the uterus in the amniotic fluid rupture membranes was clear elke breech presentation was noted the buttocks was then delivered along with the legs cord was lengthened the arms was swept across the chest anteriorly and a modified Merocel maneuver was utilized to deliver the rest of the onto the maternal abdomen where the cord was clamped and cut the nose and throat were bulb suction the infant was handed to the nursery nurse in attendance delivery at 5:40 a.m. a male scores 9 and 9 at 1 and 5 minutes weighing 7 lb 10 oz 19 in long taken to the nursery in stable condition cord gas segment was obtained cord blood was obtained and the placenta was then delivered intact with a three-vessel cord the uterus was externalized blood clots and membranes removed from the intrauterine cavity 10 units of Pitocin was given intra myometrial in the and intravenously and the uterus contracted well. Uterine incision was then repaired in 2 layers with 0 Vicryl in a running interlocking fashion 2nd being an imbricating stitch. Bilateral tubal sterilization was then performed with the fallopian tubes held with tension Nenzel clamps medial salpinx was identified arcuate vessels and the fimbriae of Karina were identified clamps were placed across the proximal tube arcuate vessel and the fimbriae of Karina and the fallopian tubes were excised bilaterally the proximal tube arcuate vessel and fimbria Karina within doubly ligated with 2 0 silk suture in double fashion cautery to the end of the fallopian tubes hemostasis was excellent irrigation was performed blood clots removed from the cul-de-sac both lateral gutters sponge needle instrument counts correct anterior peritoneum was closed with 0 Vicryl in a running fashion with the rectus muscles fascia was closed with 2. Quill S R S system bilaterally subcutaneous tissues closed with 2 O plain and the skin was closed with absorbable linden I NSORB and then the skin was closed with Dermabond and a Aquacel sterile dressing was applied patient was taken to the recovery room stable condition sponge needle and instrument counts correct VT prevention SCDs antibiotic prophylaxis Ancef 2 g procedure performed in the operating room 2. Mom and baby in stable condition for question dictating thank you Anesthesia: spinal Surgeon: Steven Gregory MD Bottom Hoop Driver: surgical nurse practitioner Estimated blood loss (mL): 500 IV fluids (mL): 2,000 Urine output (mL): 300 Drains: No Packing: No Pathology: yes Complications: No immediate complications Condition: stable Disposition: floor Findings: viable male elke breech delivered at 0540 spontaneous respiration and cry to nursery stable condition apgars 9+9 wt 7-10 lg 19in placenta intact 3 vessel cord normal configuration uteru
--- NOTE | 2020-01-05 06:45 | P.PCNOB_ITS ---
OB - Delivery Note Procedure Procedure: Procedures Operation Date: 01/05/20 05:15 Actual Procedures Side Surgeon Repeat LT Section Bilateral Salpingectomies Bilateral tubal sterilization Steven Gregory MD Induction method: none Delivery monitor: external FHT and external uterine Route of delivery: Specimen: Yes (placenta) Estimated blood loss (mL): 500 Anesthesia type: Spinal Disposition: floor [place] Baby Date of : 01/05/20 Time of : 05:40 Weeks of gestation at delivery: 38 gender: Male Weight (pounds): 7 Weight (ounces): 10 presentation: elke breech Placenta delivery description: Manual Removal and Normal Configuration cord vessel description: 3 Vessels score one minute: 9 score five minutes: 9
--- NOTE | 2020-01-05 06:51 | LDADM ---
This patient, Candelaria Rowell, was admitted to Labor/Delivery/Recovery 120 on 01/04/20 at 22:36. Plans for labor, pain management and were discussed with patient. Patient/family oriented to hospital policies and general routines including ID bracelet, bed and alarms, visiting hours, pain management, procedures, bathroom and other care routines, personal items, smoking policy, room service/diet and guest tray routines, infant security routines, and visiting hours. Patient/Family are encouraged to report perceived risks to care and to ask questions if they do not understand what they are told or what they should do. See OBIX for further documentation.
--- NOTE | 2020-01-05 07:03 | PM.OBDSVD ---
DS: Admitting Diagnosis Admitting Diagnosis Admitting Diagnosis: term previous x2 spontaneous onset of labor desires repeat section desires bilateral tubal sterilization generalized anxiety disorder major depressive disorder anemia DS: Discharge Diagnosis Discharge Diagnosis (1) Encounter for female sterilization procedure: Code(s): Z30.2 - Encounter for sterilization Status: Acute (2) Spontaneous onset of labor: Status: Acute (3) Delivery by section: Status: Acute (4) Term : Code(s): Z34.90 - Encounter for supervision of normal , unspecified, unspecified trimester Status: Acute (5) History of smoking: Code(s): Z87.891 - Personal history of nicotine dependence Status: Acute (6) Depression: Code(s): F32.9 - Major depressive disorder, single episode, unspecified Status: Acute (7) Anemia: Code(s): D64.9 - Anemia, unspecified Status: Acute (8) Anxiety: Code(s): F41.9 - Anxiety disorder, unspecified Status: Acute (9) delivery delivered: Code(s): O82 - Encounter for delivery without indication Status: Acute (10) Term delivered: Code(s): O80 - Encounter for full-term uncomplicated delivery Status: Acute OB - DS: Summary Hospital Course Time spent discussing smoking cessation with patient: 3 to 10 minutes OB Procedures : Ultrasound OB Procedures Intrapartum: and Tubal ligation OB Procedures: : P.P. tubal ligation Peripartum Data Delivery Method: Section Procedures: Procedures Operation Date: 01/05/20 05:15 Actual Procedures Side Surgeon p Section Not Applicable Steven Gregory MD complications: none 1: Gender: Male Disposition of : home Status at Discharge Functional status at discharge: independent ambulation Overall status at discharge: patient is back to baseline Time Spent with Patient Time attestation: Total time spent providing and/or coordinating discharge services: Time spent: Less than 30 minutes Exam Const: General: comfortable, no acute distress, alert and awake Orientation/consciousness: patient oriented x3 Limitations: no limitations Chest: Breast/axilla inspection: normal inspection of the breasts Breast/axilla palpation: normal palpation of the breasts Resp: Effort & Inspection: normal respiratory effort Auscultation: clear to auscultation bilaterally Cardio: Rate: regular rate GI: Inspection: incision (ddi) GI Palp: Yes Soft to palpation Auscultation: normal bowel sounds : General: Yes bladder normal to inspection and Yes no CVA tenderness Bimanual exam- vagina & uterus: consistency normal and non-tender Psych: Appearance: grossly normal Mental Status: mental status grossly normal Affect: normal affect Attitude: cooperative Thought content: Yes Normal thought content present Judgement: Good judgement present (Psych) DS: Data Data Completed and Pending Pending studies at discharge: Pending at discharge 01/05/20 05:42 Surgical [PTH] Routine 01/05/20 05:55 Surgical [PTH] Routine 01/05/20 06:02 Surgical [PTH] Routine Labs on day of discharge: Labs from last 24 hours 01/05/20 01/05/20 01/05/20 04:46 04:46 02:34 WBC 12.6 H RBC 3.88 L Hgb 10.1 L Hct 31.9 L MCV 82.2 MCH 26.0 MCHC 31.7 L RDW 14.5 Plt Count 218 MPV 11.8 H Immature Gran % (Auto) 1.7 H Neut % (Auto) 75.2 H Lymph % (Auto) 13.5 L Stone % (Auto) 8.2 Eos % (Auto) 0.9 Baso % (Auto) 0.5 Lymph # (Auto) 1.70 Stone # (Auto) 1.0 H Eos # (Auto) 0.1 Baso # (Auto) 0.1 Abs Immat Gran (auto) 0.22 H Absolute Neuts (auto) 9.5 H Absolute Nucleated RBC 0.0 Nucleated RBC % 0.0 Urine Color Yellow Urine Appearance Clear
[2020-01-05] MEDS: diphenhydrAMINE HCl INJ 50 MG/ML VIAL 25 MG IV PUSH (07:15)
[2020-01-05] MEDS: KETOROLAC 30 MG/ML VIAL (*BKC) IV PUSH ×3 (07:35→20:37)
[2020-01-05] MEDS: OXYTOCIN 30 UNITS/NS 500 ML 30 UNITS/500 ML BAG 125 UNITS IV CONT (08:22)
[2020-01-05 08:50] LABS: Rapid Plasma Reagin Non-Reactive (NonReactive)
--- NOTE | 2020-01-05 09:57 | OBPPTRN ---
Patient transferred to post room #282 via ( hospital bed ) at 0901. Support person present. Oriented to unit, room, information board, rooming in, admission packet and security measures. Patient verbalizes understanding.
[2020-01-05] MEDS: KCL 20 MEQ/D5/0.45% SOD CHL 1,000 ML 125 ML IV CONT (13:24)
[2020-01-05] MEDS: POLYSACCHARIDE IRON COMPLEX 150 MG CAPSULE PO (17:16)
[2020-01-05] MEDS: DOCUSATE SODIUM 100 MG CAPSULE PO (17:16)
[2020-01-06 04:45] VITALS: BP 116/64; PULSE 96; RESP 16; TEMP 36.5; O2SAT 99
[2020-01-06] MEDS: IBUPROFEN 600 MG TABLET PO ×2 (05:06→13:24)
[2020-01-06 05:38] LABS: Basophils Percent Auto 0.2 % (0.2-1.2); Eosinophils Absolute Auto 0.1 K/mm3 (0-0.3); Eosinophils Percent Auto 1.1 % (0-4.4); Hematocrit 24.8 % (37.0-47.0); Hemoglobin 7.9 g/dL (12.0-15.0); Immature Granulocyte Absolute 0.12 K/mm3 (0.00-0.031); Immature Granulocyte Percent A 1.3 % (0-0.5); Lymphocytes Absolute Auto 0.95 K/mm3 (0.9-3.2); Lymphocytes Percent Auto 10.7 % (18.3-44.2); Mean Corpuscular HGB Conc 31.9 g/dl (32-36); Mean Corpuscular Hemoglobin 25.7 pg (26-34); Mean Corpuscular Volume 80.8 fl (80-100); Mean Platelet Volume 10.5 fl (7.4-10.4); Monocytes Absolute Auto 0.6 K/mm3 (0.1-0.6); Monocytes Percent Auto 6.7 % (2.6-8.5); Neutrophils Absolute Auto 7.1 K/mm3 (1.3-6.7); Platelet Count Result 136 k/mm3 (150-375); Red Blood Count 3.07 M/mm3 (4.2-5.4); Red Cell Distribution Width 14.3 % (11.5-14.5); White Blood Count 8.9 K/mm3 (4.5-10.0)
[2020-01-06 07:50] VITALS: BP 121/61; PULSE 83; RESP 18; TEMP 37.7; O2SAT 98
--- NOTE | 2020-01-06 07:50 | PM.OBPNVD ---
OB - PN: Subj Subjective Date/time seen: 01/06/20 07:50 pod #1 repeat c section with Bilateral tubal sterilization Patient comments: no complaints, pain well controlled, tolerating diet and flatus present baby status: doing well feeding status: breast and bottle feeding OB - PN: Obj Data Labs CBC & Chem 7: 01/06/20 05:22 Labs: Laboratory Results - last 24 hr 01/05/20 01/06/20 04:46 05:22 WBC 8.9 RBC 3.07 L Hgb 7.9 L Hct 24.8 L MCV 80.8 MCH 25.7 L MCHC 31.9 L RDW 14.3 Plt Count 136 L MPV 10.5 H Immature Gran % (Auto) 1.3 H Neut % (Auto) 80.0 H Lymph % (Auto) 10.7 L [place] % (Auto) 6.7 Eos % (Auto) 1.1 Baso % (Auto) 0.2 Lymph # (Auto) 0.95 [place] # (Auto) 0.6 Eos # (Auto) 0.1 Baso # (Auto) 0.0 Abs Immat Gran (auto) 0.12 H Absolute Neuts (auto) 7.1 H Absolute Nucleated RBC 0.0 Nucleated RBC % 0.0 RPR Non-reactive OB - PN A/P Assessment and Plan (1) Term delivered: Code(s): O80 - Encounter for full-term uncomplicated delivery Status: Acute (2) Encounter for female sterilization procedure: Code(s): Z30.2 - Encounter for sterilization Status: Acute (3) Delivery by section: Status: Acute (4) History of smoking: Code(s): Z87.891 - Personal history of nicotine dependence Status: Acute (5) Depression: Code(s): F32.9 - Major depressive disorder, single episode, unspecified Status: Acute (6) Anemia: Code(s): D64.9 - Anemia, unspecified Status: Acute (7) Anxiety: Code(s): F41.9 - Anxiety disorder, unspecified Status: Acute (8) delivery delivered: Code(s): O82 - Encounter for delivery without indication Status: Acute Time Spent With Patient Time: Total time spent is greater than 50% in coordination of care (as documented) at patient's floor/unit and/or counseling patient: Review of Systems Review of Systems: All systems reviewed & are unremarkable except as noted in HPI and below Constitutional: Constitutional: Reports no additional constitutional complaints Cardiovascular: Cardiovascular: Reports no additional cardiovascular complaints Respiratory: Respiratory: Reports no additional respiratory complaints Gastrointestinal: Gastrointestinal: Reports no additional gastrointestinal complaints Genitourinary: Genitourinary: Reports no additional female genitourinary complaints Integumentary/Breasts: Skin/Breast: Reports system reviewed and no additional complaints, except as docu Neurologic: Reports system reviewed and no additional complaints, except as documented Exam Const: General: comfortable, no acute distress, alert and awake Orientation/consciousness: patient oriented x3 Chest: Breast/axilla inspection: normal inspection of the breasts Breast/axilla palpation: normal palpation of the breasts Resp: Effort & Inspection: normal respiratory effort Auscultation: clear to auscultation bilaterally Cardio: Rate: regular rate GI: Inspection: incision (dressing dry and intact) GI Palp: Yes Soft to palpation Percussion: Yes normal to percussion Auscultation: normal bowel sounds Rectal Exam: deferred : General: Yes bladder normal to inspection Urinary Catheter: Urinary Catheter: urine clear Psych: Appearance: grossly normal Mental Status: mental status grossly normal Affect: normal affect Attitude: cooperative Judgement: Good judgement present (Psych)
--- NOTE | 2020-01-06 08:14 | WPDANLDNPN2 ---
Anes-Prog Note L&D-Neuraxial Date/Time: 01/06/20 08:14 Neuraxial medications: intrathecal PF morphine Opiod-related complaints: none Patient feedback: Patient satisfied with post-operative pain management.
--- NOTE | 2020-01-06 08:14 | WPDANLDPN2 ---
Anes-Prog Note L&D Date/Time: 01/06/20 08:14 Comfortable throughout: section Neuraxial method: spinal Epidural/Spinal procedure site: clean & non-tender Neuro status: Neuro function grossly intact. Cardiovascular status: normal Respiratory status: normal Airway patency: baseline Mental status: baseline Post-Op hydration status: normal Vital Signs: Last Vital Signs Temp 36.5 C 01/06/20 04:45 Pulse 96 01/06/20 04:45 Resp 16 01/06/20 04:45 BP 116/64 01/06/20 04:45 Pulse Ox 99 01/06/20 04:45 I/O: Intake & Output 01/05/20 01/06/20 01/06/20 23:59 07:59 15:59 Output Total 550 Balance -550 Post-procedural complaints: none Patient feedback: Patient satisfied with anesthetic care.
[2020-01-06] MEDS: POLYSACCHARIDE IRON COMPLEX 150 MG CAPSULE PO ×2 (09:05→17:00)
[2020-01-06] MEDS: DOCUSATE SODIUM 100 MG CAPSULE PO ×2 (09:05→17:00)
[2020-01-06 20:15] VITALS: BP 117/65; PULSE 81; RESP 16; TEMP 36.6; O2SAT 99
[2020-01-07 08:10] VITALS: BP 115/73; PULSE 75; RESP 18; TEMP 36.8; O2SAT 99
[2020-01-07] MEDS: DOCUSATE SODIUM 100 MG CAPSULE PO (08:50)
[2020-01-07] MEDS: SIMETHICONE 80 MG TAB.CHEW PO (08:51)
[2020-01-07] MEDS: POLYSACCHARIDE IRON COMPLEX 150 MG CAPSULE PO (08:51)
== END 2020-01-07 15:13 | disposition home or self-care (01) | DRG 540 ==
LOC: ANHLDR 01-05 01:37 → ANHOBPP 01-05 01:51 → ANHLDR 01-05 07:10 → ANHOB2 01-06 08:48 → ANHLDR 01-11 07:40 → ANHOBPP 01-11 07:41
PROVIDERS: Admitting Provider Obstetrics & Gynecology; PCP Internal Medicine Gastroenterology; Visit Provider Obstetrics & Gynecology
PROC: 10D00Z1 Extraction of Products of Conception, Low, Open Approach (ICD-10-PCS; CPT 59514; principal; 2020-01-05 05:15)
DX: O34.211 Maternal care for low transverse scar from previous cesarean delivery (principal); Z37.0 Single live birth; Z3A.38 38 weeks gestation of pregnancy; O36.8330 Maternal care for abnormalities of the fetal heart rate or rhythm, third trimester, not applicable or unspecified; Z23 Encounter for immunization; O32.1XX0 Maternal care for breech presentation, not applicable or unspecified; O99.344 Other mental disorders complicating childbirth; F41.1 Generalized anxiety disorder; F32.9 Major depressive disorder, single episode, unspecified; O99.284 Endocrine, nutritional and metabolic diseases complicating childbirth; E72.12 Methylenetetrahydrofolate reductase deficiency; Z30.2 Encounter for sterilization; O99.02 Anemia complicating childbirth; D64.9 Anemia, unspecified
CPT/HCPCS: 36415; 81003; 85025; 86592; 86850; 86900; 86901; 88302; 88307; 90471; 90686; A9270; G0008; J0131; J0690; J1200; J1885; J2274; J2405; J2590; J3010; J3480; J7120

== ENCOUNTER 2021-12-01 17:10 | Emergency (ER) | payer OTHER, SELFPAY ==
[2021-12-01 17:24] VITALS: BP 125/84; PULSE 90; RESP 18; TEMP 36.2; O2SAT 99
--- NOTE | 2021-12-01 17:40 | ED.URI ---
HPI - URI/Sore Throat General Chief Complaint: Upper Respiratory Infection Stated Complaint: cough, throat hurts, headache, nose congestion Time Seen by Provider: 12/01/21 17:20 History of Present Illness HPI Narrative: 31-year-old female presents the emergency room for evaluation of sinus congestion, postnasal drip, productive cough and a sore throat. States symptoms of been present for 3 days. Son accompanies with her to the emergency room, and he has symptoms as well. Patient states has been taking Tylenol intermittently without any resolution of symptoms. Denies fever, shortness of breath or difficulty breathing. Related Data Home Medications Medication Instructions Recorded Confirmed aspirin 81 mg chewable tablet 81 mg PO DAILY 12/23/19 12/24/19 bupropion HCl 150 mg tablet,12 hr 150 mg PO DAILY 12/23/19 12/24/19 sustained-release cetirizine 10 mg capsule (Zyrtec) 10 mg PO DAILY 12/23/19 12/24/19 citalopram 40 mg tablet 40 mg PO BID 12/23/19 12/24/19 fluticasone propionate 50 1 spray intranasal DAILY 12/23/19 12/24/19 mcg/actuation nasal spray,suspension (Flonase Allergy Relief) folic acid 1 mg tablet 1 mg PO DAILY 12/23/19 12/24/19 vit no.95-ferrous 1 tablet PO DAILY 12/23/19 12/24/19 fumarate 28 mg-folic acid 800 mcg tablet () Allergies Allergy/AdvReac Type Severity Reaction Status Date / Time vanilla Allergy Severe Nausea and Uncoded 11/20/19 12:10 Vomiting Review of Systems Review of Systems: CONSTITUTIONAL: Denies fever, chills, or sweats. EYES: Denies visual changes, redness, or discharge. ENT: Reports rhinorrhea, congestion, and sore throat CARDIOVASCULAR: Denies chest pain, palpitations, or edema. RESPIRATORY: Reports cough GASTROINTESTINAL: Denies abdominal pain, nausea, vomiting, or diarrhea. GENITOURINARY: Denies dysuria or hematuria. SKIN: Denies rash or itching. MUSCULOSKELETAL: Denies back pain, joint pain, or myalgia. NEUROLOGIC: Denies headache, numbness, dizziness, or weakness. PSYCHIATRIC: Denies anxiety or depression. [facility] Past Medical History Medical History Anemia Anxiety delivery delivered Depression History of smoking IUD migration (~03/2019) Surgical History Surgical History History of laparoscopic appendectomy Previous section 06-16-2010, 38 wks BREECH 1. F, 7lbs 6oz, Primary Dr Gregory [facility] Previous section 05-24-2012, 39 wks 1. F, 5lbs 7oz, Repeat NOTE Dr Price at [place] Family History Family History Grandparent Diabetes mellitus Hypertension Grandparent Diabetes mellitus Hypertension Grandparent Family history of heart disease in male family member before age 55 Diabetes mellitus Carcinoma of colon Father COPD (chronic obstructive pulmonary disease) Social History Social History Smoking packs per day: 1 Smoking cigarettes per day: 20.0 Years smoked: 10 Smoking pack-years: 10.00 Smoking status: Never smoker Tobacco type: cigarettes Second hand tobacco smoke exposure: No Alcohol intake: never Substance use: never Substance use type: does not use 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 HEAD: Normocephalic, atraumatic. EYES: Conjunctivae normal, PERRLA and EOMI. ENT: External nose normal, Nares clear, no rhinorrhea or epistaxis. Mucous membranes moist. Oropharynx without tonsillar hypert
[2021-12-01 18:16] LABS: SARS-CoV-2 RNA PCR Negative
== END 2021-12-01 18:47 | disposition home or self-care (01) ==
PROVIDERS: Emergency Provider Nurse Practitioner Family; PCP Internal Medicine Gastroenterology
DX: J06.9 Acute upper respiratory infection, unspecified (principal); Z20.822 Contact with and (suspected) exposure to COVID-19; F41.9 Anxiety disorder, unspecified; F32.A Depression, unspecified; Z86.2 Personal history of diseases of the blood and blood-forming organs and certain disorders involving the immune mechanism; Z79.82 Long term (current) use of aspirin; F17.210 Nicotine dependence, cigarettes, uncomplicated
CPT/HCPCS: 96372; 99283; C9803; J1100; U0003; U0005